=== PATIENT | female | born 1995 | race Caucasian/White ===

== ENCOUNTER 2023-02-21 18:35 | Emergency (ER) | payer BC ==
[2023-02-21] MEDS ORDERED: diphenhydrAMINE 25 MG CAP ONE (20:12)
[2023-02-21] MEDS ORDERED: predniSONE 20 MG TAB ONE (20:12)
[2023-02-21] MEDS ORDERED: EPINEPHrine 1 MG/ML VIAL ONE (20:18)
== END 2023-02-21 22:46 | disposition home or self-care (01) ==
LOC: ERS 18:35
DX: T78.2XXA Anaphylactic shock, unspecified, initial encounter (principal)
CPT/HCPCS: 96372; 99283; J0171; J7512